=== PATIENT | male | born 1960 | race Caucasian/White ===

== ENCOUNTER 2018-09-15 19:21 | Emergency (ER) | payer BC ==
--- NOTE | 2018-09-15 20:10 | ED ---
Complex/Multi-Sys Presentation - HPI Summary HPI Summary: This patient is a 58 year old M presenting to [facility] accompanied by his with a chief complaint of outer left arm numbness since 2 weeks ago. Patient states that this pain comes and goes and that he came to the ED because several people he talked to suggested he should. Patient reports neck pain. Patient denies dysuria. He rates the pain 0/10 in severity. Symptoms aggravated by nothing. Symptoms alleviated by nothing. PMHx of HTN and high cholesterol. - History Of Current Complaint Chief Complaint: EDNeurologicalDeficit Time Seen by Provider: 09/15/18 19:49 Hx Obtained From: Patient, Family/Sociology Faculty Member - Onset/Duration: Sudden Onset, Lasting Weeks - 2 Timing: Intermittent, Lasting:, Weeks - 2 Severity Currently: None Character: Unable To Describe - numbness Aggravating Factor(s): nothing Alleviating Factor(s): nothing Associated Signs And Symptoms: Negative: Dysuria - Allergies/Home Medications Allergies/Adverse Reactions: Allergies Allergy/AdvReac Type Severity Reaction Status Date / Time No Known Allergies Allergy Verified 09/15/18 19:27 PMH/Surg Hx/FS Hx/Imm Hx Previously Healthy: No Endocrine/Hematology History: Denies: Hx Diabetes, Hx Thyroid Disease Cardiovascular History: Reports: Hx Hypertension Respiratory History: Denies: Hx Asthma, Hx Chronic Obstructive Pulmonary Disease (COPD) GI History: Denies: Hx Ulcer Sensory History: Denies: Hx Legally Blind - Surgical History Surgical History: None Infectious Disease History: No Infectious Disease History: Denies: Hx Clostridium Difficile, Hx Hepatitis, Hx Human Immunodeficiency Virus (HIV), Hx of Known/Suspected MRSA, Hx Shingles, Hx Tuberculosis, Hx Known/ Suspected VRE, Hx Known/Suspected VRSA, History Other Infectious Disease, Traveled Outside the [place] in Last 30 Days - Family History Known Family History: Positive: Cardiac Disease - father had [place] - Social History Alcohol Use: Rare Hx Substance Use: No Substance Use Type: Reports: None Hx Tobacco Use: No Smoking Status (MU): Never Smoked Tobacco Do You Chew or Dip Tobacco: No Have You Chewed or Dipped Tobacco in the LAST YEAR: No Have You Smoked in the Last Year: No Review of Systems Negative: dysuria Musculoskeletal: Other - positive - neck pain Positive: Numbness - outer left arm All Other Systems Reviewed And Are Negative: Yes Physical Exam - Summary Physical Exam Summary: VITAL SIGNS: Reviewed. GENERAL: Patient is a well-developed and nourished MALE who is lying comfortable in the stretcher. Patient is not in any acute respiratory distress. HEAD AND FACE: No signs of trauma. No ecchymosis, hematomas or skull depressions. No sinus tenderness. EYES: PERRLA, EOMI x 2, No injected conjunctiva, no nystagmus. EARS: Hearing grossly intact. Ear canals and tympanic membranes are within normal limits. MOUTH: Oropharynx within normal limits. NECK: Supple, trachea is midline, no adenopathy, no JVD, no carotid bruit, no c- spine tenderness, neck with full ROM CHEST: Symmetric, no tenderness at palpation LUNGS: Clear to auscultation bilaterally. No wheezing or crackles. CVS: Regular rate and rhythm, S1 and S2 present, no murmurs or gallops appreciated. ABDOMEN: Soft, non-tender. No signs of distention. No rebound no guarding, and no masses palpated. Bowel sounds are normal. EXTREMITIES: FROM in all major joints, no edema, no cyanosis or clubbing. NEURO: Alert and oriented x 3. No acute neurological deficits. Speech is normal and follows commands. SKIN: Dry and warm Triage Information Reviewed: Yes Vital Signs On Initial Exam: Initial Vitals Temp Pulse Resp BP Pulse Ox 98.1 F 56 16 149/88 98 09/15/18 19:24 09/15/18 19:24 09/15/18 19:24 09/15/18 19:24 09/15/18 19:24 Vital Signs Reviewed: Yes Diagnostics - Vital Signs Vital Signs Temp Pulse Resp BP Pulse Ox 09/15/18 19:24 98.1 F 56 16 149/88 98 - Laboratory Lab Statement: Any lab studies that have been ordered have been reviewed, and results considered in the medical decision making process. - CT Spine/Cervical CT Interpretation Completed By: Radiologist Summary of CT Findings: IMPRESSION: 1. No acute findings. 2. Multilevel degenerative change as above, most severe at C5/C6, with. multilevel neural foramen narrowing. These findings were reviewed by Dr. Love. Complex Multi-Symp Course/Dx Course Of Treatment: This patient is a 58 year old M presenting to [facility] accompanied by his with a chief complaint of outer left arm numbness since 2 weeks ago. Patient states that this pain comes and goes and that he came to the ED because several people he talked to suggested he should. Patient reports neck pain. Patient denies dysuria. He rates the pain 0/10 in severity. Symptoms aggravated by nothing. Symptoms alleviated by nothing. PMHx of HTN and high cholesterol. Physical exam shows no remarkable findings. CT Spine Cervical IMPRESSION: 1. No acute findings. 2. Multilevel degenerative change as above, most severe at C5/C6, with. multilevel neural foramen narrowing. During the ED course, the patient was given Decadron. Patient is agreeable to discharge and was told to follow up with Dr. Barillas, neurosurgery, within 1-2 days. Patient was also told to return to the ED for any new or worsening conditions. - Diagnoses Provider Diagnoses: Cervical spine arthritis with nerve pain Discharge - Sign-Out/Discharge Documenting (check all that apply): Patient Departure - discharge Patient Received Moderate/Deep Sedation with Procedure: No - Discharge Plan Condition: Stable Disposition: HOME Prescriptions: Dexamethasone TAB* [Decadron TAB*] 4 mg PO BID #10 tab Patient Education Materials: Osteoarthritis (ED) Referrals: Jose Raul Kinsey NP [Primary Care Provider] - Aric Barillas MD [Medical Doctor] - 1 Day Additional Instructions: Follow up with Dr. Barillas, neurosurgery, within 1-2 days. Return to the ED for any new or worsening conditions. - Attestation Statements Document Initiated by Scribe: Yes Documenting Scribe: Alonso Aguilar Provider For Whom Scribe is Documenting (Include Credential): Dr. Edvin Love MD Scribe Attestation: IAlonso, scribed for Dr. Edvin Love MD on 09/15/18 at 2000. Status of Scribe Document: Ready
[2018-09-15] MEDS ORDERED: Dexamethasone TAB* 4 MG PO ONE (22:15)
[2018-09-15 22:43] VITALS: BP 132/75
== END 2018-09-15 22:30 | disposition home or self-care (01) ==
LOC: ED 19:21
DX: M47.22 Other spondylosis with radiculopathy, cervical region (principal); M50.322 Other cervical disc degeneration at C5-C6 level; I10 Essential (primary) hypertension
CPT/HCPCS: 72125; 99282; J8540